=== PATIENT | female | born 1960 | race African-American/Black ===

== ENCOUNTER → 2017-08-15 | Outpatient (CLI) | payer BC ==
[~2017-08-15] MED LIST: ASPI-482 PO; ATOR40TA PO; DULO60CA6 PO; GABA-586 PO; SERT50TA PO
[2017-08-15 14:05] LABS: BASO # 0.1 x10^3/uL (0.0-0.2); BASO % 1 % (0-3); EOS % 3 % (0-3); HEMATOCRIT 39.5 % (36.0-47.0); LYMPH # 3.1 x10^3/uL (1.0-4.8); LYMPH % 33 % (24-48); MEAN CORPUSCULAR HEMOGLOBIN 29 pg (25-35); MEAN CORPUSCULAR HGB CONC 33 g/dL (31-37); MEAN CORPUSCULAR VOLUME 89 fL (79-100); MONO % 7 % (0-9); NEUT % 57 % (31-73); PLATELET COUNT 291 x10^3/uL (140-400); RED BLOOD COUNT 4.45 x10^6/uL (3.50-5.40); RED CELL DISTRIBUTION WIDTH 14.1 % (11.5-14.5); WHITE BLOOD COUNT 9.6 x10^3/uL (4.0-11.0)
[2017-08-15 14:31] LABS: ALBUMIN/GLOBULIN RATIO 0.9 (1.0-1.7); CALCIUM 9.3 mg/dL (8.5-10.1); CREATININE 0.9 mg/dL (0.6-1.0); GFR 77.5; POTASSIUM 4.4 mmol/L (3.5-5.1); TOTAL BILIRUBIN 0.3 mg/dL (0.2-1.0); TOTAL PROTEIN 8.4 g/dL (6.4-8.2)
== END | disposition home or self-care (01) ==
LOC: SURGPAT 13:09
PROVIDERS: ATTEND Neurological Surgery
DX: Z01.812 Encounter for preprocedural laboratory examination (principal); M48.02 Spinal stenosis, cervical region; M50.30 Other cervical disc degeneration, unspecified cervical region
CPT/HCPCS: 36415; 80053; 85025; 87641

== ENCOUNTER 2017-08-24 10:34 | Observation (INO) | payer BC ==
[2017-08-24] VITALS (9 sets, daily range): BP systolic 116–132; BP diastolic 62–77
[~2017-08-24] VITALS: Ht 165.1 cm; Wt 80.4 kg
--- NOTE | 2017-08-24 01:27 | HP ---
ADMIT DATE: 08/24/2017 HISTORY OF PRESENT ILLNESS: The patient is a pleasant 57-year-old who is having difficulty with neck pain and pain, which radiates into both of her shoulders. The left side is more involved than the right. She also notices left-sided numbness. The numbness tends to radiate to the left upper and lower extremities. She has had neck and shoulder pain for many years, but has become much more severe recently. She relates that about 6 weeks ago, she suffered a possible stroke and was hospitalized. During that hospitalization because of complaints of neck pain, an MRI of the cervical spine was obtained. She presents to me today with the study. She says she feels unsteady frequently. She notes numbness in her hands. The left hand is more involved than the right. She also notices diffuse numbness in her legs on the left side. In reviewing her records from her PCP, there is no clear history of stroke. She did, however, receive TPA. She had a swallowing study, which was negative. There is no evidence of any acute visible stroke. She had an extensive workup, which included CT scan and MRI of the neck and brain. PAST MEDICAL HISTORY: Fibromyalgia, GERD, depression, hyperlipidemia. PAST SURGICAL HISTORY: , knee surgery, [facility], tubal ligation. FAMILY HISTORY: Hypertension, Alzheimer's and spine problems. SOCIAL HISTORY: Employed as a personal injury legal assistant. . Nonsmoker. ALLERGIES: PENICILLIN. CURRENT MEDICATIONS: Neurontin, aspirin, atorvastatin, duloxetine, gabapentin, sertraline. REVIEW OF SYSTEMS: A 12-point review of systems was obtained and is noncontributory except for that mentioned above. PHYSICAL EXAMINATION: GENERAL APPEARANCE: Alert, pleasant, no acute distress, slightly depressed affect. HEENT: Normocephalic and atraumatic. NECK AND THYROID: Cejn-di-[id number] tenderness with palpation of posterior cervical region and over the left trapezius. SKIN: Warm and dry. MUSCULOSKELETAL: Cervical paraspinal muscle bulk is normal. Her cervical range of motion is restricted. Normal range of motion of the upper extremities bilaterally. EXTREMITIES: No clubbing, cyanosis or edema. NEUROLOGIC: Alert and oriented x 3, normal recent and remote memory. Strength 5/5 in bilateral upper and lower extremities, although there was some give away weakness of the left hand grasp, sensory was intact to light touch in the upper and lower extremities except for a subjective decrease involving her left forearm and left leg. Reflexes were 1+ and symmetric in the upper and lower extremities bilaterally. There are no pathologic reflexes. IMAGING REVIEWED: I reviewed the cervical MRI scan. On that study, there is significant spondylosis present. She has disk protrusions at C3-C4, C4-C5 and C5-C6. The protrusion at C3-C4 is large and central and associated with significant mass effect upon the spinal cord. The canal measures about 5 mm at this level. At C4-C5, there is a prominent, on the left, central lateral disk protrusion with central canal narrowing and measured about 7 mm. There is mass effect upon the left side of the cord along with some foraminal encroachment. At C5-C6, there is central protrusion which is right-sided predominantly with less overall stenosis. There is mild mass effect in the right neural foramen. ASSESSMENT: 1. Spinal stenosis, cervical region. 2. Cervical disk disorders with myelopathy, cervical region. PLAN: The patient complains of unsteadiness and left-sided numbness as well as pain in her left shoulder. On her imaging studies, the predominant finding is severe stenosis at C3-C4 and left-sided neural foraminal narrowing and disk fusion at C4-C5. My recommendation at this point is for her to undergo 2-level anterior cervical microdiskectomy and fusion at C3-C4, C4-C5 and see if this helps her. Certainly, the large disk at C3-C4 is a concern. I suspect that the problems at C4-C5 is radiating up into her left shoulder. I discussed surgery with her in detail. I explained the risks of this type of procedure including paralysis. She understands the risks of not operating. She would like to proceed. We will make the arrangements. FRANKIE HOOD MD DR: JACOBO/kaela JOB#: [id number] / [id number]
[~2017-08-24 10:34] MED LIST changes: +BACITRACIN 50,000 UNIT in IV NORMAL SALINE 1000ML BAG 1,000 ML IRR ONE; +BUPIVAC MPF-EPI 0.5%-1:200000 30 ML VIAL. ONE; +GELATIN SPONGE SIZE 100. ONE; +THROMBIN TOPICAL 20,000 UNIT SPRAY.SYRN KIT TP ONE; +VANCOMYCIN 1GM IVPB FOR OMNI 250 ML IV PRN
[2017-08-24] MEDS ORDERED: GLYCOPYRROLATE 1 MG/5 ML VIAL. ONE (11:20)
[2017-08-24] MEDS ORDERED: MIDAZOLAM HCL/PF 2 MG/2 ML VIAL. ONE (11:20)
[2017-08-24] MEDS ORDERED: ROCURONIUM 50 MG/5 ML VIAL. ONE ×2 (11:20→11:22)
[2017-08-24] MEDS ORDERED: REMIFENTANIL 2 MG VIAL. IV ONE (11:20)
[2017-08-24] MEDS ORDERED: DEXAMETHASONE SOD PHOS 20 MG/5 ML VIAL. ONE (11:21)
[2017-08-24] MEDS ORDERED: DESFLURANE > 120 MINUTES IH ONE (11:21)
[2017-08-24] MEDS ORDERED: PROPOFOL 20 ML IV ONE (11:21)
[2017-08-24] MEDS ORDERED: PROPOFOL 50 ML IV ONE ×2 (11:21→13:14)
[2017-08-24] MEDS ORDERED: PHENYLEPHRINE 10 MG/ML VIAL. ONE (11:21)
[2017-08-24] MEDS ORDERED: ONDANSETRON PF 4 MG/2 ML VIAL. ONE (11:21)
[2017-08-24] MEDS ORDERED: MIDAZOLAM HCL/PF 2 MG/2 ML VIAL. IV PRN ×2 (11:30→16:30)
[2017-08-24] MEDS ORDERED: LIDOCAINE 1% PF 2 ML VIAL. ID PRN ×2 (11:30→16:30)
[2017-08-24] MEDS ORDERED: fentaNYL PF VIAL 100 MCG/2 ML VIAL IV PRN ×5 (11:30→16:30)
[2017-08-24] MEDS ORDERED: KETOROLAC 30 MG/ML INJ FOR OR. INJ ONE (11:31)
[2017-08-24] MEDS: IV RINGERS,LACTATED 1000ML 1,000 ML IV SCH ×2 (11:32→18:58)
[2017-08-24] MEDS ORDERED: MAGNESIUM HYDROXIDE 2,400 MG/30 ML ORAL.SUSP. PO PRN (14:45)
[2017-08-24] MEDS ORDERED: ONDANSETRON PF 4 MG/2 ML VIAL. IV PRN (14:45)
[2017-08-24] MEDS ORDERED: 0.9 % SODIUM CHLORIDE 10 ML DISP.SYRIN. IV PRN (14:45)
[2017-08-24] MEDS ORDERED: diphenhydrAMINE HCL 25 MG CAPSULE PO PRN (14:45)
[2017-08-24] MEDS ORDERED: CALCIUM CARBONATE 500 MG TAB.CHEW PO PRN (14:45)
[2017-08-24] MEDS ORDERED: diphenhydrAMINE 50 MG/ML VIAL IV PRN (14:45)
[2017-08-24] MEDS ORDERED: MAG HYDROX/ALUMINUM HYD/SIMETH 30 ML ORAL.SUSP PO PRN (14:45)
[2017-08-24] MEDS ORDERED: ACETAMINOPHEN 325 MG TABLET. PO PRN (14:45)
[2017-08-24] MEDS ORDERED: ZOLPIDEM 5 MG TABLET. PO PRN (14:45)
[2017-08-24] MEDS: POTASSIUM CL 20MEQ D5-0.45NACL 1,000 ML IV SCH (16:00)
[2017-08-24] MEDS: fentaNYL PF VIAL 100 MCG/2 ML VIAL IV PRN ×2 (16:04→16:13)
[2017-08-24] MEDS ORDERED: HYDROcodone/APAP 7.5/325MG 1 TAB TABLET PO PRN (16:15)
[2017-08-24] MEDS ORDERED: IV RINGERS,LACTATED 1000ML 1,000 ML IV SCH (16:18)
[2017-08-24] MEDS: MORPHINE SULFATE 2 MG/ML DISP.SYRIN. IV PRN ×2 (16:29→16:53)
[2017-08-24] MEDS ORDERED: PROCHLORPERAZINE 10 MG/2 ML VIAL. IV PRN (16:30)
[2017-08-24] MEDS ORDERED: HYDROmorphone 2 MG/ML VIAL IV PRN (16:30)
[2017-08-24] MEDS: HYDROcodone/APAP 7.5/325MG 1 TAB TABLET PO PRN (18:22)
[2017-08-24] MEDS ORDERED: ATORVASTATIN CALCIUM 40 MG TABLET. PO SCH (21:00)
[2017-08-24] MEDS: DOCUSATE SODIUM 100 MG CAPSULE. PO SCH (21:12)
[2017-08-24] MEDS: GABAPENTIN 300 MG CAPSULE. PO SCH (21:12)
[2017-08-24] MEDS: METHOCARBAMOL 750 MG TABLET PO SCH (21:12)
[2017-08-25] MEDS ORDERED: VANCOMYCIN 1 GM in IV 1/2 NORMAL SALINE 250 ML IV ONE ×2
[2017-08-25] MEDS: POTASSIUM CL 20MEQ D5-0.45NACL 1,000 ML IV SCH (02:06)
[2017-08-25 03:00] VITALS: BP 111/65
[2017-08-25] MEDS: HYDROcodone/APAP 7.5/325MG 1 TAB TABLET PO PRN (07:35)
[2017-08-25] MEDS: GABAPENTIN 300 MG CAPSULE. PO SCH (08:06)
[2017-08-25] MEDS: DOCUSATE SODIUM 100 MG CAPSULE. PO SCH (08:06)
[2017-08-25] MEDS: METHOCARBAMOL 750 MG TABLET PO SCH ×2 (08:07→15:29)
[2017-08-25] MEDS ORDERED: ASPIRIN ENTERIC COATED 81 MG TABLET.DR. PO SCH (09:00)
[2017-08-25] MEDS ORDERED: DULoxetine HCL 30 MG CAPSULE.DR PO SCH (09:00)
[2017-08-25] MEDS ORDERED: SERTRALINE 50 MG TABLET. PO SCH (09:00)
--- NOTE | 2017-08-25 10:15 | DISCH ---
DISCHARGE INSTRUCTIONS Condition on Discharge Condition on Discharge: Stable Activity After Discharge Activity Instructions for Disc: Resume previous activity, Activity as tolerated Lifting Instructions after Dis: No heavy lifting, No pulling or pushing, Do not lift >10 pounds Diet after Discharge Additional Diet Restrictions: resume home diet Wound Incision Care Wound/Incision Care: Ice to area for comfort Other wound/incision instructi: may remove dressing in 48 hrs if dry then may shower- no soaking Contacting the DRDanae after DC Call your doctor for: Concerns you may have Follow-Up Follow up with: Dr. Hood's nurse in 2 weeks [phone] FRANKIE HOOD MD Aug 25, 2017 10:15
[2017-08-25] MEDS ORDERED: oxyCODONE/APAP 5/325 1 TAB TABLET PO PRN (10:30)
[2017-08-25 10:45] VITALS: BP 115/63
[2017-08-25] MEDS: oxyCODONE/APAP 5/325 1 TAB TABLET PO PRN ×2 (11:06→15:25)
--- NOTE | 2017-08-25 11:23 | PDOC ---
PROGRESS NOTES Subjective Subjective POD #1 S/P ACDF c/o neck pain Objective Objective Vital Signs Date Time Temp Pulse Resp B/P (MAP) Pulse Ox O2 Delivery O2 Flow Rate FiO2 08/25/17 11:06 Room Air 08/25/17 03:00 98.1 79 18 111/65 (80) 97 98.1 08/24/17 16:04 10.0 Intake and Output 08/25/17 07:00 Intake Total 2480 ml Output Total 1320 ml Balance 1160 ml Intake Oral 230 ml IV Total 2250 ml Output Urine Total 1300 ml Estimated Blood Loss 20 ml # Voids 2 Physical Exam General: Alert, Cooperative, Other (voice clear) MUSCULOSKELETAL: Other (soft collar on) Skin: Other (incision C,D,I,Flat ) Plan Plan of Care encouraged increased activity as tolerated increased pain medication possible dc later today Comment Review of Relevant I have reviewed the following items roxanna (where applicable) has been applied. Medications Current Medications Vancomycin HCl 250 ml @ 250 mls/hr 1X PREOP PRN IV PRIOR TO PROCEDURE; Start 08/24/17 at 06:00; Stop 08/24/17 at 18:00; Status DC Bacitracin 77921 unit/Sodium Chloride 1,000 ml @ 1,000 mls/hr 1X PERIOP ONCE IRR Last administered on 08/24/17 13:09; Start 08/24/17 at 06:00; Stop at 06:59; Status DC Gelatin (Gelfoam Size 100) 1 each STK-MED ONCE .ROUTE Last administered on 13:09; Start 08/24/17 at 07:20; Stop 08/24/17 at 07:21; Status DC Bupivacaine HCl/ Epinephrine Bitart (Sensorcain-Mpf Epi 0.5%-1:719980) 30 ml STK -MED ONCE .ROUTE Last administered on 08/24/17 13:09; Start 08/24/17 at 07: 20; Stop 08/24/17 at 07:21; Status DC Thrombin 20,000 unit STK-MED ONCE TP Last administered on 08/24/17 13:09; Start 08/24/17 at 07:20; Stop 08/24/17 at 07:21; Status DC Midazolam HCl (Versed) 2 mg STK-MED ONCE .ROUTE ; Start 08/24/17 at 11:20; Stop 08/24/17 at 11:21; Status DC Remifentanil HCl (Ultiva) 2 mg STK-MED ONCE IV ; Start 08/24/17 at 11:20; Stop 08/24/17 at 11:21; Status DC Glycopyrrolate (Robinul) 1 mg STK-MED ONCE .ROUTE ; Start 08/24/17 at 11:20; Stop 08/24/17 at 11:21; Status DC Rocuronium [place] (Zemuron) 50 mg STK-MED ONCE .ROUTE ; Start 08/24/17 at 11: 20; Stop 08/24/17 at 11:21; Status DC Desflurane (Suprane) 90 ml STK-MED ONCE IH ; Start 08/24/17 at 11:21; Stop at 11:22; Status DC Propofol 20 ml @ As Directed STK-MED ONCE IV ; Start 08/24/17 at 11:21; Stop 08/24/17 at 11:22; Status DC Propofol 50 ml @ As Directed STK-MED ONCE IV ; Start 08/24/17 at 11:21; Stop 08/24/17 at 11:22; Status DC Ondansetron HCl (Zofran) 4 mg STK-MED ONCE .ROUTE ; Start 08/24/17 at 11:21; Stop 08/24/17 at 11:22; Status DC Phenylephrine HCl (Marshall-Synephrine Inj) 10 mg STK-MED ONCE .ROUTE ; Start at 11:21; Stop 08/24/17 at 11:22; Status DC Dexamethasone Sodium Phosphate (Decadron) 20 mg STK-MED ONCE .ROUTE ; Start at 11:21; Stop 08/24/17 at 11:22; Status DC Rocuronium [place] (Zemuron) 50 mg STK-MED ONCE .ROUTE ; Start 08/24/17 at 11: 22; Stop 08/24/17 at 11:23; Status DC Midazolam HCl (Versed) 2 mg PRN 1X PRN IV PRIOR TO PROCEDURE; Start 08/24/17 at 11:30; Stop 08/25/17 at 11:29 Fentanyl Citrate (Fentanyl 2ml Vial) 25 mcg PRN Q5MIN PRN IV X 2 DOSES FOR PAIN ; Start 08/24/17 at 11:30; Stop 08/25/17 at 11:29 Fentanyl Citrate (Fentanyl 2ml Vial) 50 mcg PRN Q5MIN PRN IV X 2 DOSES FOR PAIN Last administered on 08/24/17 21:13; Start 08/24/17 at 11:30; Stop at 11:29 Ringer's Solution 1,000 ml @ 125 mls/hr Q8H IV Last administered on 11:32; Start 08/24/17 at 11:29; Stop 08/24/17 at 23:28; Status DC Lidocaine HCl (Xylocaine-Mpf 1% Vial) 2 ml 1X PRN PRN ID IV START; Start 08/24 at 11:30; Stop 08/25/17 at 11:29 Ketorolac Tromethamine (Toradol For Or Only) 30 mg STK-MED ONCE INJ ; Start at 11:31; Stop 08/24/17 at 11:32; Status DC Propofol 50 ml @ As Directed STK-MED ONCE IV ; Start 08/24/17 at 13:14; Stop 08/24/17 at 13:15; Status DC Aspirin (Ecotrin) 81 mg DAILY PO Last administered on 08/25/17 08:06; Start 08/25/17 at 09:00 Atorvastatin Calcium (Lipitor) 40 mg QHS PO Last administered on 08/24/17 21: 12; Start 08/24/17 at 21:00 Sertraline HCl (Zoloft) 50 mg DAILY PO Last administered on 08/25/17 08:06; Start 08/25/17 at 09:00 Duloxetine HCl (Cymbalta) 60 mg DAILY PO Last administered on 08/25/17 08:06 ; Start 08/25/17 at 09:00 Gabapentin (Neurontin) 300 mg BID PO Last administered on 08/25/17 08:06; Start 08/24/17 at 21:00 Vancomycin HCl 1 gm/Sodium Chloride 250 ml @ 250 mls/hr 1X ONCE IV Last administered on 08/25/17 00:18; Start 08/25/17 at 00:00; Stop 08/25/17 at 00 :59; Status DC Acetaminophen (Tylenol) 650 mg PRN Q6HRS PRN PO MILD PAIN / TEMP; Start at 14:45 Al Hydroxide/Mg Hydroxide (Mylanta Plus Xs) 30 ml PRN Q3HRS PRN PO HEARTBURN / GAS; Start 08/24/17 at 14:45 Calcium Carbonate/ Glycine (Tums) 500 mg PRN Q3HRS PRN PO INDIGESTION; Start 08/24/17 at 14:45 Diphenhydramine HCl (Benadryl) 25 mg PRN Q6HRS PRN PO ITCHING; Start 08/24/17 at 14:45 Diphenhydramine HCl (Benadryl) 25 mg PRN Q6HRS PRN IV ITCHING; Start 08/24/17 at 14:45 Zolpidem Tartrate (Ambien) 5 mg PRN QHS PRN PO INSOMNIA, MAY REPEAT IN 1HR; Start 08/24/17 at 14:45 Sodium Chloride (Normal Saline Flush) 3 ml QSHIFT PRN IV AFTER MEDS AND BLOOD DRAWS; Start 08/24/17 at 14:45 Potassium Chloride/Dextrose/ Sod Cl 1,000 ml @ 75 mls/hr [id number] IV ; Start at 16:00; Stop 08/25/17 at 02:08; Status DC Methocarbamol (Robaxin) 750 mg TID PO Last administered on 08/25/17 08:07; Start 08/24/17 at 21:00 Docusate Sodium (Colace) 100 mg BID PO Last administered on 08/25/17 08:06; Start 08/24/17 at 21:00 Magnesium Hydroxide (Milk Of Magnesia) 2,400 mg PRN Q12HR PRN PO CONSTIPATION; Start 08/24/17 at 14:45 Ondansetron HCl (Zofran) 4 mg PRN Q6HRS PRN IV NAUESA, 1ST CHOICE; Start 08/24 at 14:45 Fentanyl Citrate (Fentanyl 2ml Vial) 50 mcg PRN Q2HR PRN IV PAIN; Start at 14:45 Fentanyl Citrate (Fentanyl 2ml Vial) 25 mcg PRN Q2HR PRN IV PAIN; Start at 14:45 Acetaminophen/ Hydrocodone Bitart (Lortab 7.5/325) 1 tab PRN Q6HRS PRN PO PAIN Last administered on 08/25/17 07:35; Start 08/24/17 at 16:15; Stop 08/25/17 at 10:21; Status DC Acetaminophen/ Hydrocodone Bitart (Lortab 7.5/325) 2 tab PRN Q6HRS PRN PO PAIN Last administered on 08/25/17 00:19; Start 08/24/17 at 16:15; Stop 08/25/17 at 10:21; Status DC Fentanyl Citrate (Fentanyl 2ml Vial) 25 mcg PRN Q5MIN PRN IV MILD PAIN; Start 08/24/17 at 16:30; Stop 08/25/17 at 16:29 Fentanyl Citrate (Fentanyl 2ml Vial) 50 mcg PRN Q5MIN PRN IV MODERATE TO SEVERE PAIN Last administered on 08/24/17 16:13; Start 08/24/17 at 16:30; Stop 08/25/17 at 16:29 Morphine Sulfate 2 mg PRN Q10MIN PRN IV MILD PAIN Last administered on 16:53; Start 08/24/17 at 16:30; Stop 08/25/17 at 16:29 Hydromorphone HCl (Dilaudid) 0.5 mg PRN Q10MIN PRN IV Moderate to severe pain; Start 08/24/17 at 16:30; Stop 08/25/17 at 16:29 Prochlorperazine Edisylate (Compazine) 5 mg PRN Q6HRS PRN IV Nausea/Vomiting, 1st Choice; Start 08/24/17 at 16:30; Stop 08/25/17 at 16:29 Midazolam HCl (Versed) 2 mg PRN 1X PRN IV PRIOR TO PROCEDURE; Start 08/24/17 at 16:30; Stop 08/25/17 at 16:29 Ringer's Solution 1,000 ml @ 125 mls/hr Q8H IV ; Start 08/24/17 at 16:18; Stop 08/25/17 at 02:08; Status DC Lidocaine HCl (Xylocaine-Mpf 1% Vial) 2 ml 1X PRN PRN ID IV START; Start 08/24 at 16:30; Stop 08/25/17 at 16:29 Oxycodone/ Acetaminophen (Percocet 5/325) 1 tab PRN Q4HRS PRN PO PAIN; Start 08/25/17 at 10:30 Oxycodone/ Acetaminophen (Percocet 5/325) 2 tab PRN Q4HRS PRN PO PAIN Last administered on 08/25/17t 11:06; Start 08/25/17 at 10:30 Active Scripts Active Reported Zoloft (Sertraline Hcl) 50 Mg Tablet 1 Tab PO DAILY Neurontin (Gabapentin) 300 Mg Capsule 300 Mg PO BID Lipitor (Atorvastatin Calcium) 40 Mg Tablet 1 Tab PO QHS Cymbalta (Duloxetine Hcl) 60 Mg Capsule. 1 Cap PO DAILY Aspir 81 (Aspirin) 81 Mg Tablet.dr 1 Tab PO DAILY Vitals/I & O Vital Sign - Last 24 Hours 08/24/17 08/24/17 08/24/17 08/24/17 15:41 15:41 15:56 16:04 Temp 97.6 97.6 Pulse 105 92 Resp 14 18 18 B/P (MAP) 154/65 147/76 Pulse Ox 100 100 100 O2 Delivery Mask Simple Mask Simple Mask Simple Mask O2 Flow Rate 10 10 10 10.0 08/24/17 08/24/17 08/24/17 08/24/17 16:11 16:13 16:26 16:29 Pulse 82 78 Resp 18 5 18 18 B/P (MAP) 141/70 134/76 Pulse Ox 96 99 99 100 O2 Delivery Room Air Room Air Room Air Room Air 08/24/17 08/24/17 08/24/17 08/24/17 16:41 16:53 17:00 17:15 Temp 97.5 98.1 97.5 98.1 Pulse 80 72 Resp 16 16 16 B/P (MAP) 130/67 128/75 (92) 119/71 (87) Pulse Ox 100 100 96 O2 Delivery Room Air Room Air Room Air 08/24/17 08/24/17 08/24/17 08/24/17 17:20 17:27 17:30 17:45 Temp 97.3 97.3 Pulse 69 Resp 18 B/P (MAP) 120/73 (89) 124/70 (88) Pulse Ox 97 O2 Delivery Room Air Room Air Room Air 08/24/17 08/24/17 08/24/17 08/24/17 18:16 18:22 18:45 19:15 Temp 97.5 97.6 97.5 97.6 Pulse 71 66 88 Resp 16 18 18 B/P (MAP) 126/77 (93) 128/74 (92) 121/73 (89) Pulse Ox 97 98 99 O2 Delivery Room Air Room Air Room Air Room Air 08/24/17 08/24/17 08/24/17 08/24/17 19:45 21:13 21:45 23:00 Temp 97.9 97.9 97.9 97.9 Pulse 86 84 Resp 18 20 20 18 B/P (MAP) 132/75 (94) 116/62 (80) Pulse Ox 98 97 O2 Delivery Room Air Room Air Room Air 08/25/17 08/25/17 08/25/17 08/25/17 00:19 03:00 07:35 07:50 Temp 98.1 98.1 Pulse 79 Resp 20 18 B/P (MAP) 111/65 (80) Pulse Ox 97 O2 Delivery Room Air Room Air Room Air Room Air 08/25/17 11:06 O2 Delivery Room Air Intake and Output 08/24/17 08/24/17 08/25/17 15:00 23:00 07:00 Intake Total 250 ml 2000 ml 230 ml Output Total 920 ml 400 ml Balance 250 ml 1080 ml -170 ml FRANKIE HOOD MD Aug 25, 2017 11:23
[2017-08-25] MEDS ORDERED: DOCU-109 PO (11:27)
[2017-08-25] MEDS ORDERED: OXYC1TAB7 PO (11:27)
[2017-08-25] MEDS ORDERED: METH750T2 PO (11:27)
[2017-08-25 15:20] VITALS: BP 113/65
--- NOTE | 2017-08-27 13:10 | PATHOLOGY ---
PATHOLOGY REPORT * * * * * * * * FINAL DIAGNOSIS: Segments of fibrocartilaginous tissue and bone, cervical disc: - Degenerative changes of fibrocartilaginous tissue. COMMENT: There is no evidence of an acute inflammatory process or malignancy. (JPM:db; 08/26/2017) REPORT ELECTRONICALLY SIGNED BY: Dg Demarco M.D. DATE/TIME: 08/27/2017 12:58 * * * * * * * * GROSS PATHOLOGY: Received in formalin labeled "Tirso Crooks, cervical disc," are multiple segments of quintanilla-white, rubbery and gritty tissue measuring 2.5 x 3.1 x 0.6 cm in aggregate dimensions, containing small fragments of possible bone.The specimen is filtered and submitted entirely in cassette A1, following decalcification. (TSD; 08/25/2017) INITIAL CPT CODE(S): A; 19334, 60308 Professional services [place] [address] Technical services performed by [facility] at [address] [place] [address]. SPECIMEN(S) RECEIVED: A.Cervical disc CLINICAL HISTORY: Cervical stenosis, herniated disc PATIENT: TIRSO CROOKS /AGE: 905/11/1960 (Age: 57) PATIENT #: [id number] ALT CASE #: SPECIMEN COLLECTION DATE: 08/24/2017 SPECIMEN RECEIVED DATE: 08/25/2017 [facility] - [address] [place] [address] - PHONE: [phone] * * * END OF REPORT * * *
--- NOTE | 2017-08-29 19:05 | OP ---
DATE OF SURGERY: 08/24/2017 PREOPERATIVE DIAGNOSIS: Cervical spinal stenosis with cervical myelopathy, C3-C4, C4-C5. POSTOPERATIVE DIAGNOSIS: Cervical spinal stenosis with cervical myelopathy, C3-C4, C4-C5. OPERATION PERFORMED: Anterior cervical microdiskectomy, C3-C4, C4-C5; anterior cervical interbody fusion, C3-C4, C4-C5 with interbody fusion cage, packed with autograft bone, anterior cervical plate, C3, C4, C5. The operation was done with multimodality monitoring including EMG monitoring, SSEP monitoring, motor evoked potentials, NIMS monitoring, fluoroscopy and microscopic dissection. OPERATIVE INDICATIONS: The patient is a very pleasant 57-year-old who developed problems with pain and numbness in both of her upper extremities along with problems relating to unsteadiness. On imaging studies, she was found to have severe stenosis at C3-C4 and moderately severe stenosis at C4-C5 and I recommended anterior cervical surgery. She did have some narrowing at C5-C6, but it did not appear to be as significant and I felt that the C3-C4 and C4-C5 were the symptomatic levels and felt that they should be addressed surgically. I did discuss with her the surgery and the risks, the techniques involved. She understood and she wished to go ahead. DESCRIPTION OF PROCEDURE: Following general endotracheal anesthesia, the patient was positioned supine on the operating room table in a neutral position. The anterior cervical region was then prepped and draped in a standard fashion. SP hose and AV impulse boots were applied for DVT prophylaxis. A microscope was draped. Fluoroscopy was draped and brought in the field. Monitoring was established. Vancomycin 1 gram was given preoperatively. Using fluoroscopic guidance, incision was made from the midline around to the right side in a skin crease. I dissected down through the skin and subcutaneous tissue. I sharply divided the platysma and then dissected around the medial aspect of the sternocleidomastoid and carotid artery sheath down the anterior cervical vertebral bodies. I placed self-retaining retractors in the longus colli muscles then I placed 14 mm pins in C4 and C5. I brought in the microscope during this time and I confirmed my position fluoroscopically. I incised the anterior annulus with a #11 blade and performed a generous diskectomy with pituitary rongeurs. I scraped away cartilaginous endplate and I drilled posteriorly and removed the posterior spurring. I used the 1 and 2 mm micro Kerrison to further remove the posterior spurring and opened the ligament with an arachnoid knife and then widened this with a 2 mm micro Kerrison. There was a subligamentous disk herniation and I grasped this with a micro blunt hook and began to tease back multiple disk fragments. I then was able to pull back the posterior ligament, which I then opened and by pulling back on the ligament, I was able to further bring fragments out of the subligamentous space and as I worked, the entire region became very well decompressed. The ligament was flushed against the posterior aspect of the bone. I opened the ligament widely. I assured myself that the foramina were open. I scraped cartilaginous endplate. I placed the interbody fusion cage, which was packed with allograft bone. Once this was tapped into position, then I removed the pin from C5 and moved the assembly up to C3-C4 and placed a pin into C3. Again, at this level, I performed an anterior diskectomy, scraped away cartilaginous endplate, drilled the posterior spurring, trimmed the posterior spurring with 1 and 2 mm micro Kerrison. I did use the arachnoid knife and opened the annulus. Again, there was a significant amount of subligamentous disk material which I grasped with both the micropituitary as well as micro blunt hook and pulled back it and as I worked, the region became very well decompressed. Again, I opened the posterior ligament widely. I assured myself that the entire region was very well decompressed. I scraped the cartilaginous endplate and prepared a bed for the fusion. I placed the interbody fusion cage, which was packed with allograft bone and then I placed an anterior plate and placed the screws which were then locked. I used 13 mm screws. The distraction pins have been removed. I did cover their openings with bone wax. I removed the retractors explored carefully and assured myself that hemostasis was perfect. I irrigated, closed the platysma as a separate layer, closed the subcutaneous tissue with interrupted absorbable sutures and the skin was closed with a 4-0 subcuticular stitch. The operation went very well and the patient was taken to recovery room in excellent condition with normal strength in upper and lower extremities. I was quite pleased with the surgery. FRANKIE Latha HOOD MD DR: JACOBO/kaela JOB#: [id number] / [id number]
== END 2017-08-25 15:35 | disposition home or self-care (01) ==
LOC: SURG 10:34 → EDUNIT# 11:30 → 4 SOUTHEST 17:00
PROVIDERS: ADMIT Neurological Surgery; ATTEND Neurological Surgery
DX: M48.02 Spinal stenosis, cervical region (principal); M50.01 Cervical disc disorder with myelopathy, high cervical region; R20.0 Anesthesia of skin; K21.9 Gastro-esophageal reflux disease without esophagitis; E78.5 Hyperlipidemia, unspecified; G95.9 Disease of spinal cord, unspecified; Z82.49 Family history of ischemic heart disease and other diseases of the circulatory system; Z82.0 Family history of epilepsy and other diseases of the nervous system; Z98.1 Arthrodesis status
CPT/HCPCS: 20931; 22551; 22552; 22853; 76000; 88304; 88311; 96365; 96375; 97110; 97116; 97162; 97530; C1713; G0378; G0379; G8978; G8979; G8980; J1100; J2250; J2270; J2405; J2704; J3010; J3370; J3490; J7030; J1885

== ENCOUNTER → 2017-10-12 | Outpatient (CLI) | payer OTHER | END | disposition home or self-care (01) | LOC: RAD 09:47 | DX: Z98.890 Other specified postprocedural states (principal); M48.02 Spinal stenosis, cervical region; Z98.1 Arthrodesis status | CPT/HCPCS: 72040 ==